=== PATIENT | male | born 1970 | race Caucasian/White ===

== ENCOUNTER 2016-12-30 19:31 | Emergency (ER) | payer BC ==
--- NOTE | 2016-12-30 22:18 | XRay Report ---
FINAL REPORT PROCEDURE: XR ELBOW 3 RT TECHNIQUE: LEFT elbow radiographs, including AP, lateral, and oblique views. CPT 33300 HISTORY: INJURY WITH OBVIOUS SWELLING/PAIN RIGHT ELBOW COMPARISON: No prior studies are available for comparison. FINDINGS: Fracture (s) and/or Dislocation(s): None . Alignment: Normal . Joint space(s): Normal . Soft tissues: Normal . Bone mineralization: Mild degree osteophyte formation is noted. Foreign bodies: None . IMPRESSION: No acute fracture. Mild degree osteoarthritis
[2016-12-30] MEDS ORDERED: TORADOL IM ONE (23:16)
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
[2016-12-31 00:22] VITALS: BP 144/90
== END 2016-12-31 00:10 | disposition home or self-care (01) ==
LOC: ED 19:31
DX: M25.521 Pain in right elbow (principal)
CPT/HCPCS: 73080; 96372; 99283; J1885

== ENCOUNTER 2018-04-26 17:57 | Emergency (ER) | payer BC, OTHER ==
[2018-04-26 18:11] VITALS: BP 144/87
[2018-04-26] MEDS ORDERED: TORADOL IM ONE (19:40)
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
== END 2018-04-26 22:23 | disposition home or self-care (01) ==
LOC: ED 17:57
DX: S16.1XXA Strain of muscle, fascia and tendon at neck level, initial encounter (principal); S86.912A Strain of unspecified muscle(s) and tendon(s) at lower leg level, left leg, initial encounter; M25.511 Pain in right shoulder; V87.7XXA Person injured in collision between other specified motor vehicles (traffic), initial encounter; Y93.89 Activity, other specified; Y92.89 Other specified places as the place of occurrence of the external cause; Y99.8 Other external cause status
CPT/HCPCS: 71046; 72040; 73030; 73562; 93005; 93010; 96372; 99283; J1885

== ENCOUNTER 2020-08-10 14:06 | Emergency (ER) | payer OTHER ==
[2020-08-10 14:30] VITALS: BP 152/93
== END 2020-08-10 18:45 | disposition left against medical advice (07) ==
LOC: ED 14:06
DX: R07.89 Other chest pain (principal); R51.9 Headache, unspecified; Z53.21 Procedure and treatment not carried out due to patient leaving prior to being seen by health care provider

== ENCOUNTER 2020-08-11 08:02 | Emergency (ER) | payer OTHER ==
[2020-08-11 08:33] VITALS: BP 137/89
== END 2020-08-11 13:40 | disposition left against medical advice (07) ==
LOC: ED 08:02
DX: R51.9 Headache, unspecified (principal); M54.2 Cervicalgia